=== PATIENT | male | born 1990 | race Caucasian/White ===

== ENCOUNTER 2016-10-21 14:53 | Emergency (ER) | payer SELFPAY ==
[~2016-10-21] VITALS: Wt 70.0 kg
== END 2016-10-21 16:41 | disposition left against medical advice (07) ==
LOC: E/R 14:53
DX: Z53.21 Procedure and treatment not carried out due to patient leaving prior to being seen by health care provider (principal)

== ENCOUNTER 2016-10-27 10:51 | Emergency (ER) | payer OTHER ==
[~2016-10-27] VITALS: Wt 70.5 kg
--- NOTE | 2016-10-27 12:07 | ERD ---
ER Documentation Chief Complaint Date/Time DATE: 10/27/16 TIME: 12:04 Chief Complaint dizzy and trembling this morning, resolved at this time. HPI This patient is a 18-year-old male with no significant medical history presenting to the department for severe headaches which is been ongoing daily for 2 months. The patient states the pain is localized to the front and the back of the head and symptoms are worse at night. Additionally he reports dizziness and trembling in his upper extremities which occurs intermittently every other day. He has taken Advil with mild relief of his headache symptoms. The patient states that one week ago while he was driving he felt a "warm" sensation that began in his chest and went up to his head. He had to pull the vehicle over and wait a couple of minutes until symptoms resolve. He states he did not lose consciousness during this event. There was only one incidence where this occurred. The patient denies chest pain, shortness of breath, urinary symptoms, fevers, chills, or all other symptoms at this time. There are no other alleviating or exacerbating factors at this time. ROS All systems reviewed and are negative except as per history of present illness. Medications Home Meds Active Scripts Naproxen* (Naprosyn*) 500 Mg Tablet, 500 MG PO BID Y for PAIN AND/OR INFLAMMATION, #15 TAB Prov:NORMA FAITH PA-C 10/27/16 PMhx/Soc Medical and Surgical Hx: pt denies Medical Hx, pt denies Surgical Hx FmHx Noncontributory for chief complaint Physical Exam Vitals Vital Signs Date Time Temp Pulse Resp B/P Pulse Ox O2 Delivery O2 Flow Rate FiO2 10/27/16 13:18 147/85 10/27/16 10:53 98.7 75 20 127/96 98 Physical Exam INITIAL VITAL SIGNS: Reviewed by me GENERAL: The patient is well developed and appropriate for usual state of health in no apparent distress HEENT: Pupils equal, round, and reactive to light. EOMI. There is no scleral icterus. NECK: C-spine is soft and supple, there is no meningismus. There is no cervical lymphadenopathy. LUNGS: Clear to auscultation bilaterally. There are no rales, wheezes or rhonchi. HEART: Regular rate and rhythm, no murmurs, clicks, rubs or gallops. ABDOMEN: Soft, non-tender, non-distended. There are bowel sounds in all four quadrants. No rebound or guarding. EXTREMITIES: There is no peripheral cyanosis or edema. No focal swelling or erythema. NEUROLOGICAL: The patient moves all four extremities with 5/5 strength. Cranial nerves II - XII are intact. Normal gait. Alert and oriented SKIN: There is no apparent rash or petechiae. HEME/LYMPHATIC: There is no evidence of excessive bruising or lymphedema. PSYCHIATRIC: The patient does not appear anxious or depressed. Result Diagram: 10/27/16 1201 10/27/16 1201 Results 24 hrs Laboratory Tests Test 10/27/16 12:01 Alanine Aminotransferase (ALT/SGPT) 24IU/L Albumin 4.8g/dl Albumin/Globulin Ratio 1.37 Alkaline Phosphatase 62IU/L Anion Gap 18 Aspartate Amino Transf (AST/SGOT) 21IU/L Basophils # 0.010^3/ul Basophils % 0.3% Blood Urea Nitrogen 10mg/dl Calcium Level 9.8mg/dl Carbon Dioxide Level 27mmol/L Chloride Level 104mmol/L Creatinine 0.76mg/dl Direct Bilirubin 0.00mg/dl Eosinophils # 0.110^3/ul Eosinophils % 1.0% Globulin 3.50g/dl Glucose Level 92mg/dl Hematocrit 42.3% Hemoglobin 14.6g/dl Indirect Bilirubin 0.8mg/dl Lymphocytes # 1.110^3/ul Lymphocytes % 13.7% Mean Corpuscular Hemoglobin 30.7pg Mean Corpuscular Hemoglobin Concent 34.5g/dl Mean Corpuscular Volume 89.1fl Mean Platelet Volume 9.5fl Monocytes # 0.510^3/ul Monocytes % 6.7% Neutrophils # 6.410^3/ul Neutrophils % 78.3% Nucleated Red Blood Cells # 0.010^3/ul Nucleated Red Blood Cells % 0.0/100WBC Platelet Count 25886^3/UL Potassium Level 4.2mmol/L Red Blood Count 4.7510^6/ul Red Cell Distribution Width 12.3% Sodium Level 145mmol/L Total Bilirubin 0.8mg/dl Total Protein 8.3g/dl White Blood Count 8.210^3/ul Procedures/MDM ED course: Labs: Lab results reviewed. No acute abnormalities noted. Imaging: CT scan brain without contrast: IMPRESSION: 1. No evidence of acute intracranial pathology. 2. The brain is normal in appearance. EKG: Interpreted by ED Physician Rate/Rhythm: Normal Sinus Rhythm, rate of 70bpm, Right axis deviation. QRS, ST, T-waves: No changes consistent w/ acute ischemia Impression: No evidence of ischemia or arrhythmia MDM: 18-year-old male with no significant medical history presenting to the emergency department for headaches and tremors which have been ongoing intermittently for 2 months. On physical examination there are no neurological deficits. Laboratory interpretation shows no acute changes. CT brain without contrast shows no evidence of intracranial abnormalities. EKG interpretation shows no signs of acute ischemia. The patient's primary diagnosis based off of workup in the department is headache with unknown etiology. The patient secondary diagnosis is essential tremor with unknown etiology. Diagnoses that were ruled out include intracranial hemorrhage, acute TIA, STEMI, and others. The patient was given referral information to follow-up with a chain person if needed. The patient was also advised to follow-up with his primary care physician for further workup or if his symptoms persist. Patient agrees with the diagnosis and understands the plan. All questions were addressed at this time. Departure Diagnosis: Primary Impression: Headache Additional Impression: Essential tremor Condition: Good Additional Instructions: Follow-up with your primary care physician within 1 week. Return to the emergency department immediately should you have any new or worsening symptoms, uncontrolled fevers, or other unexplained symptoms. Take all medications as directed. NORMA FAITH PA-C Oct 27, 2016 12:07
[2016-10-27 12:24] LABS: BASOPHILS % 0.3 % (0.0-2.0); EOSINOPHILS # 0.1 10^3/ul (0.0-0.5); HEMATOCRIT 42.3 % (42.0-52.0); HEMOGLOBIN 14.6 g/dl (14.0-18.0); LYMPHOCYTES # 1.1 10^3/ul (0.8-2.9); LYMPHOCYTES % 13.7 % (15.0-51.0); MEAN CORPUSCULAR HEMOGLOBIN 30.7 pg (29.0-33.0); MEAN CORPUSCULAR HGB CONC 34.5 g/dl (32.0-37.0); MEAN CORPUSCULAR VOLUME 89.1 fl (82.0-101.0); MEAN PLATELET VOLUME 9.5 fl (7.4-10.4); MONOCYTE # 0.5 10^3/ul (0.3-0.9); MONOCYTES % 6.7 % (0.0-11.0); NEUTROPHIL # 6.4 10^3/ul (1.6-7.5); NEUTROPHILS % 78.3 % (39.0-77.0); PLATELET COUNT 199 10^3/UL (140-440); RED BLOOD COUNT 4.75 10^6/ul (4.70-6.10); RED CELL DISTRIBUTION WIDTH 12.3 % (11.5-14.5); UNCORRECTED WBC 8.2 10^3/ul (4.8-10.8); WHITE BLOOD COUNT 8.2 10^3/ul (4.8-10.8)
[2016-10-27 12:30] LABS: ALBUMIN 4.8 g/dl (3.3-4.9); POTASSIUM 4.2 mmol/L (3.5-5.1)
[2016-10-27 12:33] LABS: ALBUMIN/GLOBULIN RATIO 1.37; BILIRUBIN,INDIRECT 0.8 mg/dl (0-1.1); BILIRUBIN,TOTAL 0.8 mg/dl (0.2-1.3); CREATININE 0.76 mg/dl (0.61-1.24); TOTAL PROTEIN 8.3 g/dl (6.1-8.1)
[2016-10-27 12:34] LABS: CALCIUM 9.8 mg/dl (8.4-10.2)
[2016-10-27 12:36] LABS: CONDITION 1
--- NOTE | 2016-10-27 12:46 | RADRPT ---
PROCEDURE: CT Brain without contrast. CLINICAL INDICATION: Syncope, headache, dizzy. TECHNIQUE: A CT of the brain was performed on a GE [employer] 64-slice CT scanner utilizing axial imaging from the skull base through the vertex without IV contrast. Multiplanar reformatted images were made. Images were reviewed on a PACS workstation. The CTDIvol is 44.93 mGy and the DLP is 630 .2 mGycm. One or the following dose reduction techniques were used: -Automated exposure control. -Adjustment of the mA and/or KV according to patient's size. -Use of iterative reconstruction technique COMPARISON: None FINDINGS: There is no intracranial hemorrhage, mass effect, or midline shift. No extra-axial fluid collection is seen. The ventricles and sulci are normal in size and configuration. The density of the brain is normal, and the nieves white matter differentiation appears well-preserved. The visualized paranasal sinuses and osseous structures are grossly unremarkable. IMPRESSION: 1. No evidence of acute intracranial pathology. 2. The brain is normal in appearance. RPTAT: [facility] Physician Afshan Date Time Electronically viewed and signed by Physician Afshan on 10/27/2016 12:45 /
[2016-10-27] MEDS ORDERED: NAPR-260 PO (13:01)
[2016-10-27 13:18] VITALS: BP 147/85
== END 2016-10-27 13:18 | disposition home or self-care (01) ==
LOC: FTE 10:51
DX: R51 Headache (principal); G25.0 Essential tremor; R55 Syncope and collapse
CPT/HCPCS: 36415; 70450; 80053; 85025; 93005; Z7502

== ENCOUNTER 2017-02-20 09:33 | Emergency (ER) | payer OTHER ==
[~2017-02-20] VITALS: Ht 172.7 cm; Wt 68.0 kg
[~2017-02-20 09:33] MED LIST: NAPR-260 PO
[2017-02-20 09:38] VITALS: Ht 172.7 cm; Wt 68.0 kg
[2017-02-20] MEDS ORDERED: KETOROLAC 60 MG INJ IM STA (10:52)
--- NOTE | 2017-02-20 11:29 | ERD ---
ER Documentation Chief Complaint Date/Time DATE: 02/20/17 TIME: 11:27 Chief Complaint HEADCAHE , FEELING FATIGUE , BLURRY VISION X 3 DAYS HPI Patient is a 27-year-old male who states he has "throbbing headaches". This is been for 3 days. He took Tylenol and Advil with minimal relief. Denies any nausea or vomiting but does admit to occasional blurry vision. He does not wear glasses. Denies fever. Denies any photosensitivity. Denies any abdominal pain. ROS All systems reviewed and are negative except as per history of present illness. Medications Home Meds Active Scripts Naproxen* (Naprosyn*) 500 Mg Tablet, 500 MG PO BID Y for PAIN AND/OR INFLAMMATION, #15 TAB Prov:NORMA FAITH PA-C 10/27/16 PMhx/Soc Medical and Surgical Hx: pt denies Medical Hx, pt denies Surgical Hx History of Surgery: No Anesthesia Reaction: No Hx Neurological Disorder: No Hx Respiratory Disorders: No Hx Cardiac Disorders: No Hx Psychiatric Problems: No Hx Miscellaneous Medical Probl: No Hx Alcohol Use: No Hx Substance Use: No Hx Tobacco Use: No FmHx Family History: No diabetes Physical Exam Vitals Vital Signs Date Time Temp Pulse Resp B/P Pulse Ox O2 Delivery O2 Flow Rate FiO2 02/20/17 09:38 98.2 78 18 146/72 100 Physical Exam General: well developed, well nourished, alert, nontoxic, no distress Head: normocephalic, atraumatic Eyes: PERRL, normal conjunctiva, extraocular movements intact Neck: Supple, nontender, no lymphadenopathy, no midline tenderness Oropharynx: no tonsilar erythema or edema, uvula midline, no exudates, no kissing tonsils, no drooling Respiratory: Clear to auscaultation bilaterally, speaks in full sentences, no use of accesory muscles or labored breathing, no rales, ronchi, or wheezing Cardiovascular: RRR, No murmurs GI: soft, non tender, non distended, negative murphys sign, negative mcburneys point tenderness, no cva tenderness bilaterally, no rebound or guarding Back: no midline tenderness, no step offs or bony abnormalities, sensation to light touch in tact Extremities: moving all extremities normally, normal gait, no edema Skin: no visible rashes Neuro: CN 2-12 intact, normal speech, gelatin maker utility strength 5/5 bilaterally, rapid alternating movements wnl, romberg and pronator drift wnl Results 24 hrs Current Medications Medications (Trade) Dose Ordered Sig/Yaquelin Route PRN Reason Start Time Stop Time Status Last Admin Dose Admin Ketorolac Tromethamine (Toradol) 60 mg ONCE STAT IM 02/20/17 10:52 02/20/17 10:53 DC 02/20/17 10:57 Procedures/MDM 27-year-old male presents with headache. He is well-appearing and his neurological examination is completely normal. He was seen here in October for similar symptoms and had a negative CT scan and therefore with a normal neurological examination and having symptoms like this in the past I do not believe it was necessary to do another CT scan at this time. Accu-Chek was normal. Visual acuity 20/40 all around. He was given Toradol here in the emergency room and discharged with anti-inflammatories and pain medication. Recommended this patient follow up with her primary care doctor within 48 hours or return to the emergency room for any worsening of symptoms. However this time I do believe there is suitable for outpatient management. I answered all their questions and they agreed with the plan and were discharged home. Departure Diagnosis: Primary Impression: Headache Condition: Stable RODGER SORIANO PA-C February 20, 2017 11:29
[2017-02-20] MEDS ORDERED: ASPI1TAB30 PO (11:30)
== END 2017-02-20 11:35 | disposition home or self-care (01) ==
LOC: FTE 09:33
DX: R51 Headache (principal)
CPT/HCPCS: 82962; 96372; J1885; Z7502